=== PATIENT | male | born 1995 | race Caucasian/White ===

== ENCOUNTER → 2020-10-29 | Outpatient (CLI) | payer SELFPAY ==
--- NOTE | 2020-10-29 16:09 | XR ---
EXAMINATION TYPE: XR ribs RT DATE OF EXAM: 10/29/2020 COMPARISON: NONE HISTORY: Right rib pain TECHNIQUE: 4 views right RIBS FINDINGS: No definite displaced rib fractures. IMPRESSION: No definite displaced rib fractures.
== END | disposition home or self-care (01) ==
LOC: RADXRMAIN 15:22
PROVIDERS: ATTEND Psychologist Clinical
DX: R07.81 Pleurodynia (principal)